=== PATIENT | female | born 1960 | race Caucasian/White ===

== ENCOUNTER 2024-10-24 14:01 | Emergency (ER) | payer MEDICARE, SELFPAY ==
--- NOTE | ~2024-10-24 | XR_ITS ---
EXAMINATION: XR chest 2V DATE: 10/24/2024 14:52 INDICATION: Left-sided chest pain TECHNIQUE: frontal and lateral views of the chest were obtained. COMPARISON: None FINDINGS: Tiny calcified nodules at the right midlung zone consistent with old granulomatous disease. No other airspace opacities, pulmonary edema, pleural effusion or pneumothorax. The cardiomediastinal silhouette is normal. Left pectoral implantable ekg monitor. IMPRESSION: 1. No acute cardiopulmonary disease. Reviewed, dictated and finalized at location A.
--- NOTE | 2024-10-24 14:04 | ECG_ITS ---
Test Date: 2024-10-24 14:09:20 Measurements Intervals [place] Rate: 71 P: 49 [place]: 155 QRS: -33 QRSD: 86 T: 55 QT: 399 QTc: 434 Interpretive Statements SINUS RHYTHM LEFTWARD AXIS PATTERN CONSISTENT WITH PULMONARY DISEASE NONSPECIFIC T-WAVE ABNORMALITY No previous ECG available for comparison Electronically Signed On 10-25-2024 06:37:22 CDT by Maikel Ortiz D.O
[2024-10-24 14:06] VITALS: BP 137/67; PULSE 71; RESP 18; TEMP 36.4; O2SAT 99
--- NOTE | 2024-10-24 14:31 | ED.GENADULT ---
HPI - General Adult General Chief complaint: Chest Pain Stated complaint: cp History of Present Illness HPI narrative: 63-year-old female present to the emergency department for evaluation for 10 minutes of left-sided chest pain. Patient states she had 10 minutes of chest pain and it resolved approximately 45 minutes ago. Patient is unsure if she has any cardiac history. Patient denies any current pain. Patient denies any recent nausea vomiting diarrhea. Patient denies any shortness of breath. Patient denies any falls or injuries. Patient does have history of CHF, type 2 diabetes, high cholesterol, hypertension Related Data Home Medications ?Medication ?Instructions ?Recorded ?Confirmed ?Last Taken ?Type acetaminophen 325 mg tablet 650 mg PO Q6H PRN fever or pain 10/22/24 10/22/24 Unknown History (Tylenol) amlodipine 5 mg tablet 5 mg PO DAILY 10/22/24 10/22/24 Unknown History aspirin 81 mg tablet 81 mg PO DAILY 10/22/24 10/22/24 Unknown History atorvastatin 80 mg tablet (Lipitor) 80 mg PO HS 10/22/24 10/22/24 Unknown History clopidogrel 75 mg tablet 75 mg PO DAILY 10/22/24 10/22/24 Unknown History duloxetine 60 mg capsule,delayed 60 mg PO DAILY 10/22/24 10/22/24 Unknown History release furosemide 40 mg tablet (Lasix) 40 mg PO DAILY 10/22/24 10/22/24 Unknown History gabapentin 300 mg capsule 300 mg PO TID 10/22/24 10/22/24 Unknown History hydralazine 50 mg tablet 50 mg PO QID PRN hypertension 10/22/24 10/22/24 Unknown History lisinopril 20 mg tablet 20 mg PO DAILY 10/22/24 10/22/24 Unknown History Allergies Allergy/AdvReac Type Severity Reaction Status Date / Time No Known Allergies Allergy Verified 10/24/24 14:57 Review of Systems Review of Systems: All systems reviewed & are unremarkable except as noted in HPI and below PMFSH Past Medical History Medical History CHF (congestive heart failure) Anxiety and depression Peripheral neuropathy Type 2 diabetes mellitus HLD (hyperlipidemia) HTN (hypertension) Left homonymous hemianopsia Social History Social History Smoking packs per day: 1 Smoking cigarettes per day: 20.0 Smoking status: Current every day smoker Tobacco type: cigarettes Alcohol intake: unknown Substance use: never Lack of Transportation: No Lack of Food: Never True Current Housing: I Have Housing Concerned About Future Housing: No Difficulty Paying Gas/Electric Bills: No Difficulty Paying for Meds: No Currently Unemployed: No Education: Grade School Difficulty w/ Childcare or Family Care: No Spiritual care concerns: No Exam Narrative: APPEARANCE: Well appearing, no pain, no distress, well-nourished. HEAD: normocephalic, atraumatic. EYES: PERRLA/EOMI, conjunctivae clear. NOSE: Normal no drainage EARS:TMS clear with good light reflex. THROAT: Pharynx clear, no exudate. NECK: Supple. No adenopathy, no masses. RESPIRATORY: Airway patent, respirations nonlabored. Clear to auscultation bilaterally, no rales, rhonchi, wheezing. CARDIOVASCULAR: Regular rate and rhythm without murmurs rubs or gallops. ABDOMINAL: Soft, nontender, nondistended, normal bowel sounds MUSCULOSKELETAL: Reproducible chest wall tenderness to palpation NEURO: Alert. Cranial nerves II through XII intact. Good gait. Good coordination SKIN: Warm, dry. Normal Color Course Vital Signs Vital signs: Vital Signs Temperature 97.5 F L 10/24/24 14:06 Pulse Rate 71 10/24/24 14:06 Respiratory Rate 18 10/24/24 14:06 Blood Pressure 137/67 10/24/24 14:06 Pulse Oximetry 99 10/24/24 14:06 Oxygen Delivery Room Air 10/24/24 14:06 Temperature 97.5 F L 10/24/24 14:06 Pulse Rate 71 10/24/24 17:43 Respiratory Rate 17 10/24/24 17:43 Blood Pressure 104/60 10/24/24 17:43 Pulse Oximetry 99 10/24/24 17:43 Oxygen Delivery Room Air 10/24/24 17:44 Medical Decision Making [facility] Narrative Medical decision making narrative: 63-year-old female present to the emergency department for evaluation for 10 minutes of left-sided chest pain. Patient is afebrile with no leukocytosis hemoglobin of 13.2. Patient has an INR of 1.0. Serial troponins were negative. UA was significant for urinary tract infection patient was started on IV Rocephin. Chest x-ray shows no acute cardiopulmonary abnormality. EKG shows normal sinus rhythm with no evidence of acute STEMI. Patient will be started on antibiotics for home encouraged close follow-up with her primary care physician for additional outpatient cardiac testing. Was updated the results of her workup all questions concerns were addressed. Differential Diagnosis Differential Diagnosis: ACS, pneumonia, pulmonary embolism, urinary tract infection Vital Signs Vital Signs: Vital Signs Temperature 97.5 F L 10/24/24 14:06 Pulse Rate 71 10/24/24 14:06 Respiratory Rate 18 10/24/24 14:06 Blood Pressure 137/67 10/24/24 14:06 Pulse Oximetry 99 10/24/24 14:06 Oxygen Delivery Room Air 10/24/24 14:06 Temperature 97.5 F L 10/24/24 14:06 Pulse Rate 71 10/24/24 17:43 Respiratory Rate 17 10/24/24 17:43 Blood Pressure 104/60 10/24/24 17:43 Pulse Oximetry 99 10/24/24 17:43 Oxygen Delivery Room Air 10/24/24 17:44 Lab Data Lab results reviewed: Yes I reviewed the patient's lab results. 10/24/24 14:32 10/24/24 14:32 Labs: Lab Results 10/24/24 10/24/24 10/24/24 Range/Units 14:32 14:32 17:15 WBC 8.9 (4.5-10.0) K/mm3 RBC 5.39 (4.2-5.4) M/mm3 Hgb 13.2 (12.0-15.0) g/dL Hct 44.7 (37.0-47.0) % MCV 82.9 (80-100) fl MCH 24.5 L (26-34) pg MCHC 29.5 L (32-36) g/dl RDW 17.2 H (11.5-14.5) % Plt Count 458 H (150-375) k/mm3 MPV 9.8 (7.4-10.4) fl Immature Gran % (Auto) 0.3 (0-0.5) % Neut % (Auto) 53.0 (45.5-73.1) % Lymph % (Auto) 37.6 (18.3-44.2) % [place] % (Auto) 5.3 (2.6-8.5) % Eos % (Auto) 3.1 (0-4.4) % Baso % (Auto) 0.7 (0.2-1.2) % Lymph # (Auto) 3.35 H (0.9-3.2) K/mm3 [place] # (Auto) 0.5 (0.1-0.6) K/mm3 Eos # (Auto) 0.3 (0-0.3) K/mm3 Baso # (Auto) 0.1 (0.0-0.1) K/mm3 Abs Immat Gran (auto) 0.03 (0.00-0.031) K/mm3 Absolute Neuts (auto) 4.7 (1.3-6.7) K/mm3 Absolute Nucleated RBC 0.000 (0.0-0.012) K/mm3 Band Neutrophils % Not Reportable Nucleated RBC % 0.0 (0.0-0.2) % Platelet Estimate Adequate (Adequate) Hypochromasia Occasional Schistocytes None seen PT 13.4 (11.1-14.7) Seconds INR 1.0 APTT 29.6 (22.3-36.8) Seconds Sodium 137 (137-145) mmol/L Potassium 3.7 (3.4-5.0) mmol/L Chloride 101 (98-107) mmol/L Carbon Dioxide 25 (22-30) mmol/L Anion Gap 11 (4-12) mmol/L BUN 25 H (7-17) mg/dL Creatinine 1.40 H (0.7-1.0) mg/dL Estim Creat Clear Calc 45 ml/min Estimated GFR 38 L (59 - ) Glucose 113 H (65-110) mg/dL Calcium 9.4 (8.4-10.2) mg/dL Total Bilirubin 0.3 (0.2-1.3) mg/dL AST 31 (14-36) U/L ALT 19 (6-35) U/L Alkaline Phosphatase 118 (38-126) U/L Troponin I < 0.012 Cancelled < 0.012 (0.000-0.034) ng/mL NT-Pro-B Natriuret Pep 116 H (19.9-100) pg/mL Total Protein 8.0 (6.3-8.2) g/dL Albumin 4.0 (3.5-5.1) g/dL Urine Color Yellow (Yellow) Urine Appearance Turbid H (Clear) Urine pH 5.5 (5.0-9.0) Ur Specific [place] 1.013 (1.001-1.035) Urine Protein Trace (Negative) mg/dL Urine Glucose (UA) Negative (Negative) mg/dL Urine Ketones Negative (Negative) mg/dL Ur Blood (Man) 1+ H (Negative) Urine Nitrate Positive H (Negative) Urine Bilirubin Negative (Negative) Urine Urobilinogen 1.0 (<2.0) mg/dL Add Ur Microanalysis Reviewed Leukocyte Esterase Rfl 3+ H (Negative) MONTSE/UL Urine RBC 0-2 (0-2) /hpf Urine WBC >100 H (0-3) /hpf Urine WBC Clumps Present H (None) /HPF Ur Squamous Epith Cells Many H (Few) /hpf Amorphous Sediment Few H (None) Urine Bacteria 4+ H /hpf Urine Casts 11-20 Hyaline Casts 0-2 (None) /lpf Imaging Data Radiologist's impression: Impressions Chest X-Ray 10/24/24 14:56 IMPRESSION: 1. No acute cardiopulmonary disease. ECG Data EKG #1: EKG Interpretation: normal rate, sinus rhythm, no ectopy, non-specific ST changes, normal QRS, normal QT and left axis Discharge Plan Discharge Clinical Impression: Chest pain, UTI (urinary tract infection) Patient Disposition: Home Condition: Stable Instructions: Antibiotic Form Additional Instructions: Antibiotic as directed until completed. close follow-up with your primary care physician for additional outpatient cardiac testing. If you have any worsening symptoms then please call or return to the emergency department. Patient Language: Burundian Prescriptions: New cephalexin 500 mg capsule 500 mg PO Q8H 7 Days Qty: 21 0RF No Action amlodipine 5 mg tablet 5 mg PO DAILY aspirin 81 mg tablet 81 mg PO DAILY furosemide [Lasix] 40 mg tablet 40 mg PO DAILY atorvastatin [Lipitor] 80 mg tablet 80 mg PO HS acetaminophen [Tylenol] 325 mg tablet 650 mg PO Q6H PRN (Reason: fever or pain) lisinopril 20 mg tablet 20 mg PO DAILY clopidogrel 75 mg tablet 75 mg PO DAILY gabapentin 300 mg capsule 300 mg PO TID hydralazine 50 mg tablet 50 mg PO QID PRN (Reason: hypertension) Rx Instructions: SBP > 160 duloxetine 60 mg capsule,delayed release(/EC) 60 mg PO DAILY Follow-up/Referrals: Clem,Vernell Trujillo [Primary Care Provider] Quality HEART score for chest pain patients History: slightly suspicious ECG: normal Age: > 45 and < 65 years Risk factors: 1 or 2 risk factors Troponin: < or = to 1x normal limit Heart score: 2
[2024-10-24 14:42] LABS: Hematocrit 44.7 % (37.0-47.0); Hemoglobin 13.2 g/dL (12.0-15.0); Immature Granulocyte Percent A 0.3 % (0-0.5); Lymphocytes Absolute Auto 3.35 K/mm3 (0.9-3.2); Mean Corpuscular HGB Conc 29.5 g/dl (32-36); Mean Corpuscular Hemoglobin 24.5 pg (26-34); Mean Corpuscular Volume 82.9 fl (80-100); Nucleated Red Blood Cells Absolute Auto 0.000 K/mm3 (0.0-0.012); Nucleated Red Blood Cells Perc 0.0 % (0.0-0.2); Platelet Count Result 458 k/mm3 (150-375); Red Blood Count 5.39 M/mm3 (4.2-5.4); White Blood Count 8.9 K/mm3 (4.5-10.0)
[2024-10-24 14:51] LABS: Add Urine Microscopic? YES; Alanine Aminotransferase 19 U/L (6-35); Albumin Level 4.0 g/dL (3.5-5.1); Alkaline Phosphatase 118 U/L (38-126); Anion Gap 11 mmol/L (4-12); Appearance Urine Turbid (Clear); Aspartate Amino Transferase 31 U/L (14-36); Bilirubin,Total 0.3 mg/dL (0.2-1.3); Blood Urea Nitrogen 25 mg/dL (7-17); Calcium 9.4 mg/dL (8.4-10.2); Carbon Dioxide 25 mmol/L (22-30); Chloride 101 mmol/L (98-107); Estimated CRCL calculation 45 ml/min; Estimated Glomerular Filt Rate 38; Glucose 113 mg/dL (65-110); Glucose Urine UA Negative (Negative); Leukocyte Esterase Ur 3+ LEU/UL (Negative); Need Manual Microscopic Reviewed; Nitrate Urine Positive (Negative); Potassium 3.7 mmol/L (3.4-5.0); Sodium 137 mmol/L (137-145); Specific Grav Ur 1.013 (1.001-1.035); Total Protein 8.0 g/dL (6.3-8.2)
[2024-10-24 14:53] LABS: INR 1.0; Prothrombin Time 13.4 Seconds (11.1-14.7)
[2024-10-24 14:54] LABS: Partial Thromboplastin Time 29.6 Seconds (22.3-36.8)
[2024-10-24 15:02] LABS: Hypochromasia Occasional; Schistocytes None Seen
[2024-10-24 15:03] LABS: NT Pro B Type Natriuretic Pept 116 pg/mL (19.9-100); Troponin I < 0.012 ng/mL (0.000-0.034)
[2024-10-24] MEDS: cefTRIAXone 1 GM in SODIUM CHLORIDE 0.9% IV 50 ML 100 ML IVPB (15:07)
[2024-10-24 15:14] VITALS: BP 116/56; PULSE 89; RESP 16; O2SAT 97
[2024-10-24 16:05] VITALS: BP 128/58; PULSE 79; RESP 16; O2SAT 97
--- NOTE | 2024-10-24 16:23 | PC.NURSE ---
Pt endorsed concern that her green blanket was missing and pt was concerned it may have been left on the ambulance. RN called facility who was able to check room and determine that the green blanket was left in pt's room at facility. RN provided warm blanket.
--- NOTE | 2024-10-24 17:19 | ECG_ITS ---
Test Date: 2024-10-24 17:24:39 Measurements Intervals [place] Rate: 74 P: 58 [place]: 149 QRS: -32 QRSD: 88 T: 50 QT: 403 QTc: 448 Interpretive Statements SINUS RHYTHM LEFTWARD AXIS PATTERN CONSISTENT WITH PULMONARY DISEASE Electronically Signed On 10-25-2024 06:39:47 CDT by Maikel Ortiz D.O
[2024-10-24 17:43] VITALS: BP 104/60; PULSE 71; RESP 17; O2SAT 99
[2024-10-24 17:43] LABS: Troponin I < 0.012 ng/mL (0.000-0.034)
--- NOTE | 2024-10-24 18:45 | PC.NURSE ---
[facility] ETA for Transport 830p. Report called back to facility.
[2024-10-24 19:07] VITALS: BP 99/59; PULSE 76; RESP 16; O2SAT 97
--- NOTE | 2024-10-24 20:34 | PC.NURSE ---
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
--- NOTE | 2024-10-24 20:50 | PC.NURSE ---
RN offered pt snacks, she politely declined at this time. Updated pt on transport time.
== END 2024-10-24 21:48 | disposition home or self-care (01) ==
PROVIDERS: Emergency Provider Emergency Medicine; PCP Internal Medicine Infectious Disease
DX: R07.9 Chest pain, unspecified (principal); N39.0 Urinary tract infection, site not specified; I11.0 Hypertensive heart disease with heart failure; I50.9 Heart failure, unspecified; F41.9 Anxiety disorder, unspecified; F32.A Depression, unspecified; E11.40 Type 2 diabetes mellitus with diabetic neuropathy, unspecified; E78.5 Hyperlipidemia, unspecified; Z79.82 Long term (current) use of aspirin
CPT/HCPCS: 36415; 71046; 80053; 81001; 82948; 83880; 84484; 85025; 85610; 85730; 93005; 96365; 99284; J0696

== ENCOUNTER 2024-11-23 22:06 | Emergency (ER) | payer MEDICARE, SELFPAY ==
--- NOTE | ~2024-11-23 | XR_ITS ---
Examination: XR chest 1V portable Clinical History: cp Comparison: 10/24/2024 Technique: Portable AP Findings: Loop recorder. Heart size normal. No focal airspace consolidation, edema, or effusion. Thin linear scar right midlung. No acute bony abnormality. IMPRESSION: 1. No acute cardiopulmonary findings given portable technique. Reviewed, dictated and finalized at location R.
[2024-11-23 22:05] VITALS: BP 109/59; PULSE 88; RESP 22; TEMP 36.3; O2SAT 98
--- NOTE | 2024-11-23 22:15 | ECG_ITS ---
Test Date: 2024-11-23 22:24:49 Measurements Intervals [place] Rate: 96 P: 58 [place]: 139 QRS: -35 QRSD: 88 T: 47 QT: 355 QTc: 451 Interpretive Statements SINUS RHYTHM WITH OCCASIONAL SUPRAVENTRICULAR PREMATURE COMPLEXES LEFT AXIS DEVIATION DELAYED PRECORDIAL R/S TRANSITION BASELINE ARTIFACT- I, II, III, AVR, AVL, AVF, V1-V6 BORDERLINE ECG Compared to ECG 10/24/2024 17:24:39 No significant changes Electronically Signed On 11-24-2024 05:23:01 CDT by Salvador Bartholomew D.O.
[2024-11-23 22:53] LABS: Hematocrit 38.9 % (37.0-47.0); Hemoglobin 12.0 g/dL (12.0-15.0); Immature Granulocyte Percent A 0.5 % (0-0.5); Immature Platelet Fraction Pct 3.1 % (0.9-11.2); Lymphocytes Absolute Auto 2.91 K/mm3 (0.9-3.2); Mean Corpuscular HGB Conc 30.8 g/dl (32-36); Mean Corpuscular Hemoglobin 25.3 pg (26-34); Mean Corpuscular Volume 82.1 fl (80-100); Nucleated Red Blood Cells Absolute Auto 0.000 K/mm3 (0.0-0.012); Nucleated Red Blood Cells Perc 0.0 % (0.0-0.2); Platelet Count Result 382 k/mm3 (150-375); Red Blood Count 4.74 M/mm3 (4.2-5.4); White Blood Count 11.1 K/mm3 (4.5-10.0)
[2024-11-23 23:02] LABS: Alanine Aminotransferase 15 U/L (6-35); Albumin Level 4.2 g/dL (3.5-5.1); Alkaline Phosphatase 118 U/L (38-126); Anion Gap 11 mmol/L (4-12); Aspartate Amino Transferase 22 U/L (14-36); Bilirubin,Total 0.6 mg/dL (0.2-1.3); Blood Urea Nitrogen 21 mg/dL (7-17); Calcium 9.4 mg/dL (8.4-10.2); Carbon Dioxide 23 mmol/L (22-30); Chloride 105 mmol/L (98-107); Estimated CRCL calculation 49 ml/min; Estimated Glomerular Filt Rate 43; Glucose 126 mg/dL (65-110); Lipase 35 U/L (23-300); Potassium 4.1 mmol/L (3.4-5.0); Sodium 139 mmol/L (137-145); Total Protein 8.6 g/dL (6.3-8.2)
[2024-11-23 23:03] LABS: INR 1.0; Prothrombin Time 13.0 Seconds (11.1-14.7)
[2024-11-23 23:06] LABS: Partial Thromboplastin Time 20.0 Seconds (22.3-36.8)
[2024-11-23 23:14] LABS: Troponin I < 0.012 ng/mL (0.000-0.034)
[2024-11-23 23:18] LABS: Hypochromasia 1+; Ovalocytes 1+; Schistocytes None Seen
--- NOTE | 2024-11-24 00:13 | ED.CHESTPAIN ---
HPI - Chest Pain General Chief Complaint: Chest Pain Stated Complaint: chest pain Time Seen by Provider: 11/23/24 23:34 History of Present Illness HPI narrative: This is a 63-year-old female with history of diabetes, CHF, hyperlipidemia, hypertension, CVA, general debility who presents to the ED for chest pain. Patient states that she was sitting at home this afternoon when she had onset of left chest pain described as a sharpness. She had some shortness of breath with this as well. She has had rhinorrhea for the past few days as well. She has never had this pain before. Denies any prior cardiac history. Related Data Home Medications ?Medication ?Instructions ?Recorded ?Confirmed ?Last Taken ?Type acetaminophen 325 mg tablet 650 mg PO Q6H PRN fever or pain 10/22/24 10/22/24 Unknown History (Tylenol) aspirin 81 mg tablet 81 mg PO DAILY 10/22/24 10/22/24 Unknown History hydralazine 50 mg tablet 50 mg PO QID PRN hypertension 10/22/24 10/22/24 Unknown History Allergies Allergy/AdvReac Type Severity Reaction Status Date / Time No Known Allergies Allergy Verified 10/24/24 14:57 Review of Systems Review of Systems: Gen.: Denies fevers or chills Eyes: Denies eye pain or visual change ENT: Denies congestion Respiratory: As per HPI CV: As per HPI GI: Denies abdominal pain nausea, emesis or diarrhea denies burning, urgency, frequency or hematuria Musculoskeletal: Denies back pain or muscle pain Neuro: Denies numbness, tingling, weakness or focal weakness Skin: Denies rash Except as documented, all other systems reviewed and negative [facility] Past Medical History Medical History Implantable loop recorder present CHF (congestive heart failure) Anxiety and depression Peripheral neuropathy Type 2 diabetes mellitus HLD (hyperlipidemia) HTN (hypertension) Left homonymous hemianopsia Social History Social History Smoking packs per day: 1 Smoking cigarettes per day: 20.0 Smoking status: Current every day smoker Tobacco type: cigarettes Alcohol intake: unknown Substance use: never Lack of Transportation: No Lack of Food: Never True Current Housing: I Have Housing Concerned About Future Housing: No Difficulty Paying Gas/Electric Bills: No Difficulty Paying for Meds: No Currently Unemployed: No Education: Grade School Difficulty w/ Childcare or Family Care: No Spiritual care concerns: No Exam Narrative: APPEARANCE: No acute distress, nontoxic, resting in bed EYES: EOMI HEENT: Normocephalic, atraumatic, OMM RESPIRATORY: No respiratory distress Clear to auscultation bilaterally with no rhonchi wheezing or rales. CARDIOVASCULAR: Tachycardic with regular rhythm without murmurs rubs or gallops. ABDOMINAL: Soft, nontender, nondistended, no rebound or guarding MUSCULOSKELETAl: 2+ pitting edema to the bilateral lower extremities up to the knees NEURO: Awake and alert. Following commands, speech normal, no focal deficits SKIN:: Healing wounds to the bilateral lower extremities PSYCHIATRIC: Normal affect/mood, Course Vital Signs Vital signs: Vital Signs Temperature 97.4 F L 11/23/24 22:05 Pulse Rate 88 11/23/24 22:05 Respiratory Rate 22 H 11/23/24 22:05 Blood Pressure 109/59 L 11/23/24 22:05 Pulse Oximetry 98 11/23/24 22:05 Oxygen Delivery Room Air 11/23/24 22:05 Temperature 97.4 F L 11/23/24 22:05 Pulse Rate 88 11/23/24 22:05 Respiratory Rate 22 H 11/23/24 22:05 Blood Pressure 109/59 L 11/23/24 22:05 Pulse Oximetry 98 11/23/24 22:05 Oxygen Delivery Room Air 11/23/24 23:20 MDM - Chest Pain MDM Narrative Medical decision making narrative: 63-year-old female presenting for chest pain. On initial evaluation, patient was in mild distress, afebrile, hemodynamically stable. Heart and lungs were clear. Abdomen was soft and nontender. No chest wall tenderness to palpation. Patient was given aspirin with significant improvement of her chest pain. She had a mild leukocytosis at 11.1. Creatinine was at 1.2 around baseline. BNP slightly elevated at 745 likely chronic. Initial troponin negative. Repeat troponin negative. Chest x-ray showed no acute process. Patient was additionally given Toradol. She had near resolution of her pain. Heart score 3. She likely has an atypical chest pain. Given her CHF history, she was advised follow-up with captain room service in the next few days for re-evaluation. Patient was agreeable to this plan. Given strict return precautions. Differential Diagnosis Differential diagnosis: Likely stable angina, unstable angina pectoris, atypical chest pain, costochondritis and chest pain Medical Records Data Attestation: I reviewed the patient's medical records. Lab Data Attestation: I reviewed the patient's lab results. 11/23/24 22:43 11/23/24 22:43 Labs: Lab Results 11/23/24 11/24/24 11/24/24 Range/Units 22:43 01:29 01:31 WBC 11.1 H (4.5-10.0) K/mm3 RBC 4.74 (4.2-5.4) M/mm3 Hgb 12.0 (12.0-15.0) g/dL Hct 38.9 (37.0-47.0) % MCV 82.1 (80-100) fl MCH 25.3 L (26-34) pg MCHC 30.8 L (32-36) g/dl RDW 16.3 H (11.5-14.5) % Plt Count 382 H (150-375) k/mm3 MPV 9.8 (7.4-10.4) fl Immature Gran % (Auto) 0.5 (0-0.5) % Neut % (Auto) 65.3 (45.5-73.1) % Lymph % (Auto) 26.3 (18.3-44.2) % [place] % (Auto) 5.8 (2.6-8.5) % Eos % (Auto) 1.8 (0-4.4) % Baso % (Auto) 0.3 (0.2-1.2) % Lymph # (Auto) 2.91 (0.9-3.2) K/mm3 [place] # (Auto) 0.6 (0.1-0.6) K/mm3 Eos # (Auto) 0.2 (0-0.3) K/mm3 Baso # (Auto) 0.0 (0.0-0.1) K/mm3 Abs Immat Gran (auto) 0.06 H (0.00-0.031) K/mm3 Absolute Neuts (auto) 7.2 H (1.3-6.7) K/mm3 Absolute Nucleated RBC 0.000 (0.0-0.012) K/mm3 Band Neutrophils % Not Reportable Nucleated RBC % 0.0 (0.0-0.2) % Platelet Estimate Slightly increased (Adequate) % Immature Plt Fraction 3.1 (0.9-11.2) % Hypochromasia 1+ Ovalocytes 1+ Schistocytes None seen PT 13.0 (11.1-14.7) Seconds INR 1.0 APTT 20.0 L (22.3-36.8) Seconds Sodium 139 (137-145) mmol/L Potassium 4.1 (3.4-5.0) mmol/L Chloride 105 (98-107) mmol/L Carbon Dioxide 23 (22-30) mmol/L Anion Gap 11 (4-12) mmol/L BUN 21 H (7-17) mg/dL Creatinine 1.25 H (0.7-1.0) mg/dL Estim Creat Clear Calc 49 ml/min Estimated GFR 43 L (59 - ) Glucose 126 H (65-110) mg/dL Calcium 9.4 (8.4-10.2) mg/dL Total Bilirubin 0.6 (0.2-1.3) mg/dL AST 22 (14-36) U/L ALT 15 (6-35) U/L Alkaline Phosphatase 118 (38-126) U/L Troponin I < 0.012 < 0.012 (0.000-0.034) ng/mL NT-Pro-B Natriuret Pep 745 H (19.9-100) pg/mL Total Protein 8.6 H (6.3-8.2) g/dL Albumin 4.2 (3.5-5.1) g/dL Lipase 35 (23-300) U/L Imaging Data Attestation: I personally reviewed and interpreted this imaging study as follows: (Chest x-ray: Normal cardiac silhouette, no effusions, no consolidations, no pulmonary vascular congestion) Discharge Plan Discharge Clinical Impression: Atypical chest pain, Right hemiparesis CHF (congestive heart failure) Qualifiers: Heart failure type: unspecified Heart failure chronicity: chronic Qualified Code(s): I50.9 - Heart failure, unspecified Patient Disposition: Home Condition: Stable Instructions: Antibiotic Form, Chest Pain (ED) Additional Instructions: Your EKG, labs, chest x-ray were all reassuring and not indicative of cardiac damage at this time. He should follow-up with your captain room service in the next week for re-evaluation. Also follow-up with her PCP in the next week for re-evaluation. Return to the ED for any new or worsening symptoms. Patient Language: Pashto Prescriptions: No Action aspirin 81 mg tablet 81 mg PO DAILY acetaminophen [Tylenol] 325 mg tablet 650 mg PO Q6H PRN (Reason: fever or pain) hydralazine 50 mg tablet 50 mg PO QID PRN (Reason: hypertension) Rx Instructions: SBP > 160 lidocaine [Lidocaine Pain Relief] 4 % Adhesive Patch,Medicated 1 patch transdermal DAILY Qty: 30 0RF metformin 1,000 mg Tablet 1,000 mg PO BIDWM Qty: 60 0RF furosemide [Lasix] 40 mg tablet 40 mg PO DAILY Qty: 30 0RF atorvastatin [Lipitor] 80 mg tablet 80 mg PO HS Qty: 30 0RF lisinopril 20 mg tablet 10 mg PO DAILY Qty: 30 0RF clopidogrel 75 mg tablet 75 mg PO DAILY Qty: 30 0RF amlodipine 5 mg tablet 5 mg PO DAILY Qty: 30 0RF gabapentin 300 mg capsule 300 mg PO TID Qty: 90 0RF duloxetine 60 mg capsule,delayed release(DR/EC) 60 mg PO DAILY Qty: 30 0RF Follow-up/Referrals: Clem,Beronica Trujillo. [Primary Care Provider]
[2024-11-24] MEDS: KETOROLAC 15 MG/ML VIAL (*BKC) IV PUSH (01:41)
--- NOTE | 2024-11-24 01:47 | ECG_ITS ---
Test Date: 2024-11-24 01:53:54 Measurements Intervals [place] Rate: 96 P: 57 [place]: 151 QRS: -27 QRSD: 90 T: 21 QT: 361 QTc: 456 Interpretive Statements SINUS RHYTHM DELAYED PRECORDIAL R/S TRANSITION BASELINE ARTIFACT- I, II, III, AVR, AVL, AVF, V1 BORDERLINE ECG Compared to ECG 11/23/2024 22:24:49 No significant changes Electronically Signed On 11-24-2024 05:26:07 CDT by Salvador Bartholomew D.O.
[2024-11-24 01:56] LABS: NT Pro B Type Natriuretic Pept 745 pg/mL (19.9-100)
[2024-11-24 02:02] LABS: Troponin I < 0.012 ng/mL (0.000-0.034)
== END 2024-11-24 03:43 | disposition home or self-care (01) ==
PROVIDERS: Emergency Provider Student in an Organized Health Care Education/Training Program; PCP Internal Medicine Infectious Disease
DX: R07.89 Other chest pain (principal); G81.91 Hemiplegia, unspecified affecting right dominant side; I50.9 Heart failure, unspecified; I11.0 Hypertensive heart disease with heart failure; E11.42 Type 2 diabetes mellitus with diabetic polyneuropathy; E78.5 Hyperlipidemia, unspecified; R53.81 Other malaise; F41.9 Anxiety disorder, unspecified; F32.A Depression, unspecified; F17.210 Nicotine dependence, cigarettes, uncomplicated; Z86.73 Personal history of transient ischemic attack (TIA), and cerebral infarction without residual deficits; Z79.82 Long term (current) use of aspirin; Z79.899 Other long term (current) drug therapy; Z79.02 Long term (current) use of antithrombotics/antiplatelets; I49.1 Atrial premature depolarization
CPT/HCPCS: 36415; 71045; 80053; 83690; 83880; 84484; 85025; 85055; 85610; 85730; 93005; 96374; 99284; J1885